=== PATIENT | male | born 1995 | race Asian ===

== ENCOUNTER 2018-09-14 16:18 | Emergency (ER) | payer BC ==
[2018-09-14 16:28] VITALS: BP 113/78
[2018-09-14] MEDS ORDERED: methylPREDNIS SUCC 125 MG/2ML IVP ONE (16:30)
[2018-09-14] MEDS ORDERED: FAMOTIDINE(*) 20MG/50ML PREMIX 50 ML IVPB ONE (16:30)
--- NOTE | 2018-09-14 16:42 | ER Report ---
History and Physical Time Seen By MD: 16:30 Hx. of Stated Complaint: ALLERGIC RX TO APRICOTS HPI/ROS CHIEF COMPLAINT: HISTORY OF PRESENT ILLNESS: 23-year-old male presents to ED post anaphylactic reaction, brought in by EMS. Patient reports that he was playing basketball at the [facility] and started to feel his lips swell, throat close, tongue tingle and swell, and his skin turn red. Reports that he had difficulty breathing. Stated that personnel at the [facility] gave him 0.5mg of epinephrine and 100 mg of Benadryl. Patient reports that he was then taken to the ED right away via ambulance. Patient now reports that he is mildly short of breath. Patient states that his tongue nor throat feels swollen anymore. States that his lips feel slightly swollen still. Patient reports that he thinks he may be allergic to apricots. Reports that when he was little his tongue used to tingle after ingestion of apricots. Reports that he ate [employer] prior to playing basketball. Denies ever having an anaphylactic reaction previously. REVIEW OF SYSTEMS: HEENT: Reports slightly swollen lips. Currently denies swollen throat or tongue. Respiratory: Presently, No cough, reports mild dyspnea. Cardiovascular: No chest pain, no palpitations. Gastrointestinal: No vomiting, no abdominal pain. Musculoskeletal: No back pain. Integumentary: Reports red skin. Denies pruritus. Allergies: Coded Allergies: apricot (Verified Allergy, Severe, 09/14/18) Home Meds Active Scripts Famotidine (PEPCID) 20 Mg Tablet, 20 MG PO QDAY, #15 TAB Prov:CHRIS BOYD 09/14/18 Prednisone (PREDNISONE) 20 Mg Tablet, 40 MG PO DAILY, #8 TAB Prov:CHRIS BOYD 09/14/18 Past Medical/Surgical History Patient denies any pertinent medical or surgical history. Reviewed Nurses Notes: Yes Social History of No significant past medical or surgical history. Hx Smoking: No Exposure to Second Hand Smoke?: No Hx Substance Use Disorder: No Hx Alcohol Use: No Constitutional Vital Sign - Last 24 Hours 09/14/18 16:28 Temp 98.0 Pulse 73 Resp 16 B/P (MAP) 113/78 Pulse Ox 98 O2 Delivery Room Air Physical Exam General Appearance: [The patient is alert, has no immediate need for airway protection and no current signs of toxicity.] [ ] [Eyes:] [Pupils equal and round no injection.] HEENT: lips swollen. Respiratory: [Chest is non tender, lungs sound tight upon auscultation.] Cardiac: [regular rate and rhythm] [ ] Gastrointestinal: [Abdomen is soft and non tender, no masses, bowel sounds normal.] [Musculoskeletal:] [Neck:] [Neck is supple and non tender.] [Extremities have full range of motion and are non tender.] [Skin:] Generalized mild urticaria present. Generalized redness to skin. [ ] [DIFFERENTIAL DIAGNOSIS: After history and physical exam differential diagnosis was considered for anaphylaxis reaction. Medical Decision Making ED Course/Re-evaluation ED Course Patient brought in my EMS. IV and NS started in the ambulance. Vitals and hx gathered by RN. ROS and physical exam performed. VS WNL, no dyspnea, no swollen throat or tongue, swollen lips noted, generalized mild uticaria. Plan discussed with patient. NS, salumedrol, and pepcid administered to blunt the histamine and immune response. After administration, lungs clear and patient denies dyspnea. Patient sent home with 5 day course of prednisone. Discharge instructions provided to patient. Patient educated to consult with an cardiac rehabilitation specialist, carry and epi pen with him at all time, and follow-up with PCP. Decision to Disposition Date: Sep 14, 2018 Decision to Disposition Time: 17:29 Depart Departure Latest Vital Signs Vital Signs Date Time Temp Pulse Resp B/P (MAP) Pulse Ox O2 Delivery O2 Flow Rate FiO2 09/14/18 16:28 98.0 73 16 113/78 98 Room Air Impression: Primary Impression: Allergic reaction Condition: Stable Disposition: HOME OR SELF-CARE New Scripts Famotidine (PEPCID) 20 Mg Tablet 20 MG PO QDAY, #15 TAB Prov: CHRIS BOYD 09/14/18 Prednisone (PREDNISONE) 20 Mg Tablet 40 MG PO DAILY, #8 TAB Prov: CHRIS BOYD 09/14/18 Patient Instructions: General Allergic Reaction (ED) Additional Instructions: Increase fluid intake. Get plenty of rest. Follow up with Dr. Gonzalez for allergy testing. Return to the ER if condition worsens. Follow up with your primary care provider in the next week. Problem Qualifiers Primary Impression: Allergic reaction Encounter type: initial encounter Qualified Codes: T78.40XA - Allergy, uns pecified, initial encounter CHRIS BOYD Sep 14, 2018 16:42
[2018-09-14] MEDS ORDERED: PRED20TA6 PO (17:30)
[2018-09-14] MEDS ORDERED: FAMO20TA28 PO (17:30)
== END 2018-09-14 17:40 | disposition home or self-care (01) ==
LOC: ER 16:25
DX: T78.1XXA Other adverse food reactions, not elsewhere classified, initial encounter (principal)
CPT/HCPCS: 96365; 96375; 99284; J2930; J3490

== ENCOUNTER → 2018-09-14 | Outpatient (CLI) | payer BC ==
[~2018-09-14] MED LIST: FAMO20TA28 PO; PRED20TA6 PO
== END ==
LOC: AMB 15:51
PROVIDERS: ATTEND Nurse Practitioner
DX: T78.1XXA Other adverse food reactions, not elsewhere classified, initial encounter (principal); R06.82 Tachypnea, not elsewhere classified; R06.2 Wheezing; R42 Dizziness and giddiness
CPT/HCPCS: A0425; A0433